=== PATIENT | female | born 1940 | race Caucasian/White ===

== ENCOUNTER 2018-03-02 12:20 | Emergency (ER) | payer MEDICARE, OTHER ==
[~2018-03-02] VITALS: Ht 170.2 cm; Wt 86.8 kg
[~2018-03-02 12:20] MED LIST: ALPR0.257 PO; AMOX1TAB61 PO; AZO PO; LOSA25TA5 PO; OXYC5CAP2 PO; PROM25TA10 PO; SIMV40TA3 PO; VITAMIN C PO
[2018-03-02 12:28] VITALS: BP 151/70
[2018-03-02] MEDS ORDERED: TAMO20TA PO (13:10)
[2018-03-02] MEDS ORDERED: METF500T4 PO (13:10)
== END 2018-03-02 14:12 | disposition home or self-care (01) ==
LOC: ED 13:00
DX: M54.5 Low back pain (principal); E78.5 Hyperlipidemia, unspecified; I10 Essential (primary) hypertension
CPT/HCPCS: 72110; 99284

== ENCOUNTER → 2021-04-18 | Outpatient (CLI) | payer MEDICARE ==
[~2021-04-18] MED LIST changes: +LOSA25TA25 PO; -LOSA25TA5 PO; +METF500T17 PO; +OMNIPAQUE 350 MG/ML, 100ML BOTTLE ONE; +SIMV40TA20 PO; -SIMV40TA3 PO; +TAMO20TA PO
== END | disposition home or self-care (01) ==
LOC: RAD 10:33
PROVIDERS: ATTEND Internal Medicine Hematology & Oncology
DX: C79.51 Secondary malignant neoplasm of bone (principal); C50.211 Malignant neoplasm of upper-inner quadrant of right female breast; J90 Pleural effusion, not elsewhere classified; R91.8 Other nonspecific abnormal finding of lung field; I31.3 Pericardial effusion (noninflammatory)
CPT/HCPCS: 71260; 74177; 78306; A9503; Q9967